=== PATIENT | male | born 1950 | race Caucasian/White ===

== ENCOUNTER → 2020-07-30 09:05 | Outpatient (CLI) | payer MEDICARE, OTHER, SELFPAY ==
--- NOTE | 2020-07-30 | DI.MRI.S_ITS ---
PROCEDURE: MR LUMBAR SPINE WO CON INDICATIONS: Wedge compression fracture of T11-T12 vertebra, subsequent e TECHNIQUE: Noncontrast sagittal T1 spin echo and T2 fast echo, coronal T2, sagittal STIR, axial T1 and T2 fast spin echo through the lumbar spine. COMPARISON: None. FINDINGS: Image quality: Excellent. Alignment and Curvature: No plain films are available for comparison, for numbering purposes. Thus, for the purposes of this examination, 5 lumbar type vertebral bodies will be presumed, as denoted on the montage panel. This should be confirmed and correlated with plain films, prior to any lumbar spinal intervention. There is moderate to severe leftward curvature of the spine at the thoracolumbar junction. There is mild kyphosis at T12. There is mild grade 1 retrolisthesis of L1 on L2, L2 on L3, L4 on L5, and L5 on S1. Bone Marrow: Marrow is of normal overall signal. Severe chronic wedging of T12 is present. There is mild wedging of the T11 vertebral body, which demonstrates linear low T1/T2 signal intensity within its mid/superior aspect, as well as moderate to severe diffuse STIR signal elevation throughout the anterior and middle columns. Mild reactive signal within the endplates adjacent to the T12-L1, L1-L2, L2-L3, and L3-L4 intervertebral discs. Spinal Cord: Conus medullaris terminates at the mid L1 level. Visualized cord demonstrates normal signal and size. Paraspinous Soft Tissues: No paravertebral masses. There is moderate ill-defined STIR signal elevation within the paraspinous soft tissues centered at the T11 level. Incompletely visualized abdominal aortic aneurysm measuring at least 15 mm diameter. T11-T12: There is mild, roughly 4 mm of retropulsion at the superior T12 level, causing mild canal stenosis. Mild bilateral foraminal stenosis. Mild facet and ligamentum flavum hypertrophy. T12-L1: Mild disc height loss. Moderate disc desiccation. Mild diffuse disc bulge. Mild facet and ligamentum flavum hypertrophy. Mild canal stenosis. Mild left greater than right foraminal stenosis. L1-L2: Moderate disc height loss and desiccation. Mild diffuse disc bulge. Mild bilateral facet hypertrophy. Mild canal stenosis. Mild bilateral foraminal stenosis. L2-L3: Moderate disc height loss and desiccation. Mild diffuse disc bulge with small superimposed broad-based right posterolateral protrusion. Mild facet and ligamentum flavum hypertrophy. Mild canal stenosis. Mild right greater than left foraminal stenosis. L3-L4: Moderate disc height loss and desiccation. Mild diffuse disc bulge. Mild facet and ligamentum flavum hypertrophy. Mild epidural lipomatosis. Mild canal stenosis. Moderate right and mild left foraminal stenosis. L4-L5: Moderate disc desiccation. Mild diffuse disc bulge. Mild facet and ligamentum flavum hypertrophy. Mild epidural lipomatosis. Mild canal stenosis. Mild right and [id number] left foraminal stenosis. L5-S1: Mild disc height loss. Moderate disc desiccation. Mild diffuse disc bulge with small superimposed broad-based left far lateral protrusion. Mild bilateral facet hypertrophy. Mild canal stenosis. Moderate left and mild right foraminal stenosis. IMPRESSION: 1. Severe chronic T12 compression fracture. 2. Mild subacute T11 compression fracture. This would be amenable to percutaneous vertebral augmentation by interventional radiology. 3. Kyphoscoliosis as above. 4. Multilevel degenerative disc and facet disease, as well as ligamentum flavum hypertrophy and epidural lipomatosis. 5. Mild multilevel canal stenosis. 6. Multilevel foraminal stenoses, worst at L3-L4 and L5-S1 where there are associated moderate foraminal stenoses. 7. Incompletely visualized abdominal aortic aneurysm measuring at least 50 mm; initial further assessment with ultrasound is recommended. Dictated by: Ally Michaels M.D. on 07/30/2020 at 10:40 Approved by: Ally Michaels M.D. on 07/30/2020 at 10:48
== END ==
PROVIDERS: Referring Provider Physician Assistant Medical; Visit Provider Physician Assistant Medical
DX: S22.080D Wedge compression fracture of T11-T12 vertebra, subsequent encounter for fracture with routine healing (principal); M41.9 Scoliosis, unspecified; M51.36 Other intervertebral disc degeneration, lumbar region; M48.061 Spinal stenosis, lumbar region without neurogenic claudication; M48.07 Spinal stenosis, lumbosacral region; I71.4 Abdominal aortic aneurysm, without rupture
CPT/HCPCS: 72148

== ENCOUNTER → 2020-08-08 11:21 | Outpatient (CLI) | payer MEDICARE, OTHER, SELFPAY ==
[2020-08-08 13:22] LABS: COVID19 -Nasal RAPID Negative (Negative)
== END ==
PROVIDERS: PCP Family Medicine; Visit Provider Nurse Practitioner
DX: Z20.822 Contact with and (suspected) exposure to COVID-19 (principal)
CPT/HCPCS: 87635; C9803

== ENCOUNTER 2020-08-09 08:28 | Day surgery (SDC) | payer MEDICARE, OTHER, SELFPAY ==
--- NOTE | 2020-08-09 | PATH_ITS ---
[facility] Accession Number: [id number] . 01 Material submitted: . bone - BONE T-11 . 01 Clinical history: . THORACIC KYPHOPLASTY . 01 Diagnosis: Bone, T-11, Biopsy: Trabecular bone with evidence of remodeling, marrow fibrosis, and mixed chronic and neutrophilic inflammation, consistent with prior fracture; see comment. MRV 08/14/2020 1446 Local . 01 Comment: Sections demonstrate a trabecular bone with evidence of remodeling, marrow fibrosis, and mixed chronic and focal neutrophilic inflammation. The findings are not entirely specific, but are compatible with the provided clinical history of prior compression fracture. An NAZARIO cytokeratin stain was performed given the focally dense inflammation and does not highlight any atypical cells. Clinical and radiographic correlation is recommended. . * This test was developed and its performance characteristics determined by [facility]. It has not been cleared or approved by the U.[place]. Food and Drug Administration. The FDA has determined that such clearance or approval is not necessary. This test is used for clinical purposes. It should not be regarded as investigational or for research. . 01 Electronically signed: . Jacinto Cooney MD, Dermatopathologist NPI- [id number] . 01 Gross description: . The specimen is received in formalin, labeled bone T11 and consists of a 0.8 x 0.4 x 0.4 cm clifton trabeculated fragment of bone, which is entirely submitted following decalcification in cassette A1. ([id number]) /[facility] 08/10/2020 1718 Local . 01 Pathologist provided ICD-10: S22.080A . 01 CPT . 828544, 047620, [id number] Performed at: 01 [facility] [address] [place] [address], [place] [id number] MD Alexander Wallis MD Phone: [phone]
--- NOTE | 2020-08-09 | DI.RAD.S_ITS ---
PROCEDURE: XR THORACIC SPINE 3V INDICATIONS: T-11 KYPHOPLASTY TECHNIQUE: Multiple fluoroscopic views of the thoracic spine were acquired. COMPARISON: [facility], MR, MR LUMBAR SPINE WO CON, 07/30/2020, 10:02. [facility] Outside [facility], RG, SPINE THORACOLUMBAR 2VW, 07/16/2020, 16:02. FINDINGS: Multiple fluoroscopic images of the thoracic spine demonstrate vertebroplasty procedure of the T11 vertebral body. Chronic severe compression fracture deformity of T12. IMPRESSION: Status post T11 vertebroplasty. Dictated by: Jakub Delcid M.D. on 08/09/2020 at 12:29 Approved by: Jakub Delcid M.D. on 08/09/2020 at 12:34
--- NOTE | 2020-08-09 09:11 | PM.PREOP ---
Pre-operative Note COVID-19 COVID-19 status: Negative Result date/Date tested (Pos, Neg/Pending): 08/08/20 Interval Note History & Physical reviewed/Exam performed by Physician: Yes Changes to H&P: No
[2020-08-09 09:15] VITALS: BP 127/76; PULSE 102; RESP 24; TEMP 36.7; O2SAT 97; BMI 27.1
--- NOTE | 2020-08-09 09:33 | SUR.OPER ---
Prone on spine table, head in foam head support, padded chest and pelvic supports, gel pad at knees, lower legs supported by pillows; nipples, genitalia and toes free of pressure, arms secured on foam padded arm boards at <90 degrees abduction. Tape over blanket at thigh secured to table.
[2020-08-09] MEDS: LACTATED RINGERS 1,000 ML 42 ML IV (09:34)
[2020-08-09] MEDS: CEFAZOLIN 2 GM/100 ML FROZ.PIGGY IV (09:49)
[2020-08-09] MEDS: BUPIVACAINE 0.25% W/ EPI (PF) 10 ML VIAL 20 ML INJ (10:09)
[2020-08-09 10:35] VITALS: BP 125/72; PULSE 95; RESP 16; TEMP 36.6; O2SAT 93
--- NOTE | 2020-08-09 10:38 | P.OP_ITS ---
Operative Date/Time/Diagnoses Date of procedure: 08/09/20 Time of procedure: 10:38 Pre-op diagnosis: T11 osteoporotic compression fracture Back pain Post-op diagnosis: same Procedure & Clinicians Procedure: T11 kyphoplasty Same procedure as scheduled: Yes Indications: [age] year old male with intractable pain from an acute osteoporotic T11 compression fracture. They had failed conservative management and requested operative intervention. Risks and benefits of surgery were discussed and appropriate consents were obtained. Surgeon: Felice Mike Click Yes if Unassisted: Yes Anesthesia Type: General Operative Notes Findings: None Closure Type: primary Specimen(s): other (T11 vertebral body biopsy) Estimated Blood Loss (mL): 1 Procedure in detail: The patient was brought to the operating room and intubated on the table. They were then rolled over to the well-padded prone position. Time-out was performed. We confirmed positioning with two fluoroscopy views. The back was prepped and draped in the standard sterile fashion. Preoperative antibiotics were given. Using fluoroscopic guidance, the planned incision site was infiltrated with Marcaine with epinephrine and injected down to the entry site of the left pedicle of T11. A small stab incision was made and we advanced a Jamshiedi needle down the left pedicle into the vertebral body. A bone biopsy was harvested from this and sent to pathology. We then passed the DFine osteotome and opened it up to create a void inside the vertebral body. We then began injecting the cement. This was done with frequent fluoroscopy imaging. There was no extravasation. Once we had good fill of the T11 vertebral body the injection was stopped and the trocars were removed. Final x- rays were taken. The wound was cleaned. Steri-Strips and sterile dressing were placed. Patient was rolled over, extubated, and brought to recovery without complications. Complications: none Post-operative Condition: stable Disposition: PACU Plan for aftercare: Outpatient. Activity as tolerated.
[2020-08-09 10:40] VITALS: BP 124/84; PULSE 94; RESP 13; O2SAT 92
[2020-08-09 10:45] VITALS: BP 117/74; PULSE 94; RESP 12; O2SAT 92
[2020-08-09 11:00] VITALS: BP 126/76; PULSE 95; RESP 19; O2SAT 92
[2020-08-09 11:20] VITALS: BP 119/70; PULSE 91; RESP 22; TEMP 36.4; O2SAT 94
--- NOTE | 2020-08-09 13:11 | SUR.PHASEII ---
Late entry: Assumed care of pt. Dressing to L upper back. c/d/i. Neuro check WNL see flow sheet. Denied pain tolerating po fluids. Pt wanting to go home called, d/c instructions discussed with pt and via phone. Both voiced an understanding. Assisted pt to dress. Pt left when ready and left in stable condition.
== END 2020-08-09 11:35 | disposition home or self-care (01) ==
PROVIDERS: PCP Family Medicine; Referring Provider Physician Assistant Medical; Visit Provider Orthopaedic Surgery
PROC: (CPT 22513; principal; 2020-08-09 09:45)
DX: M80.08XA Age-related osteoporosis with current pathological fracture, vertebra(e), initial encounter for fracture (principal); J44.9 Chronic obstructive pulmonary disease, unspecified; I10 Essential (primary) hypertension; Z86.73 Personal history of transient ischemic attack (TIA), and cerebral infarction without residual deficits; I71.4 Abdominal aortic aneurysm, without rupture
CPT/HCPCS: 22513; 72074; 76000; 82962; C1776; J0690; J1100; J2405; J2704; J3010

== ENCOUNTER → 2025-05-18 08:55 | Outpatient (CLI) | payer MEDICARE, OTHER, SELFPAY | PROVIDERS: PCP Family Medicine | DX: J44.9 Chronic obstructive pulmonary disease, unspecified (principal); Z87.891 Personal history of nicotine dependence; J98.8 Other specified respiratory disorders; R94.2 Abnormal results of pulmonary function studies | CPT/HCPCS: 94060; 94726; 94729 ==

== ENCOUNTER → 2025-07-10 13:06 | Outpatient (CLI) | payer MEDICARE, OTHER, SELFPAY ==
--- NOTE | 2025-07-10 13:08 | DI.CT.S_ITS ---
PROCEDURE: CT LUNG LOW DOSE SCREENING INDICATIONS: Hx of smoking 40 pack years, quit 2018 TECHNIQUE: Noncontrast 2.0-2.5 mm thick sections acquired from the pulmonary apices to the posterior costophrenic angles. 7 mm thick axial MIP, and 5 mm coronal and sagittal reformats were then acquired. For radiation dose reduction, the following was used: automated exposure control, adjustment of mA and/or kV according to patient size. COMPARISON: None. FINDINGS: Image quality: Diagnostic. Lower Neck: No enlarged lymph nodes. Thyroid: No thyroid nodules which require sonographic follow up, per consensus guidelines. Axillae: No enlarged lymph nodes. Chest Wall: Unremarkable. Bones: S shaped scoliosis. Moderate multilevel degenerative changes. Lungs and Pleura: No pneumothorax or pleural effusions. Consolidation in the right upper and right lower lobes. Moderate centrilobular emphysema. Scattered pulmonary micro nodules. Heart: Heart size is normal. No pericardial effusion. Thoracic Vessels: The aorta and pulmonary arteries demonstrate normal size. Mediastinum and Hayley: No enlarged lymph nodes. Esophagus: No wall thickening. No hiatal hernia. Upper Abdomen: Partially visualized upper abdominal aorta stent. IMPRESSION: Right upper and lower lobe consolidations, which may represent infection such as pneumonia. LUNG-RADS 0; recommend follow-up CT chest in 1-3 months. Clinically Significant Non-pulmonary Findings: None. Approved by: Sabrina Chatman M.D.,Ph.D. on 07/11/2025 at 23:41
== END ==
LOC: CT 13:08
PROVIDERS: PCP Family Medicine; Referring Provider Student in an Organized Health Care Education/Training Program; Visit Provider Student in an Organized Health Care Education/Training Program
DX: Z12.2 Encounter for screening for malignant neoplasm of respiratory organs (principal); Z87.891 Personal history of nicotine dependence; J43.2 Centrilobular emphysema
CPT/HCPCS: 71271